=== PATIENT | male | born 1990 | race Caucasian/White ===

== ENCOUNTER 2023-01-01 13:13 | Emergency (ER) | payer OTHER, SELFPAY ==
[2023-01-01 13:15] VITALS: BP 160/86; PULSE 97; RESP 14; TEMP 36.4; O2SAT 99; BMI 26.4
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
== END 2023-01-01 15:33 | disposition home or self-care (01) ==
PROVIDERS: Emergency Provider Emergency Medicine; PCP Family Medicine; Visit Provider Emergency Medicine
DX: S16.1XXA Strain of muscle, fascia and tendon at neck level, initial encounter (principal); S20.211A Contusion of right front wall of thorax, initial encounter; V43.52XA Car driver injured in collision with other type car in traffic accident, initial encounter; Y92.410 Unspecified street and highway as the place of occurrence of the external cause; R06.00 Dyspnea, unspecified; M54.9 Dorsalgia, unspecified
CPT/HCPCS: 70450; 71101; 72125; 99282

== ENCOUNTER → 2023-01-10 | Outpatient (CLI) | payer OTHER, SELFPAY ==
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
== END | disposition home or self-care (01) ==
LOC: RAD 10:45
PROVIDERS: PCP Family Medicine; Referring Provider Family Medicine; Visit Provider Family Medicine
DX: Z04.1 Encounter for examination and observation following transport accident (principal)
CPT/HCPCS: 71100

== ENCOUNTER 2025-02-12 13:48 | Emergency (ER) | payer OTHER, SELFPAY ==
[2025-02-12 13:49] VITALS: PULSE 77; RESP 18; TEMP 36.4; O2SAT 99; BMI 27.7
--- NOTE | 2025-02-12 14:45 | RAD_ITS ---
PROCEDURE: KNEE 3 VIEWS 02/12/2025 REASON FOR EXAM: PAIN, FALL TECHNIQUE: Procedure Code: RADPAT Modality: DX Procedure: KNEE 3 VIEWS FINDINGS: Acute fracture of the patella. no dislocations. No significant degenerative changes. No large joint effusion. Mild soft tissue edema. no radiographic foreign body. RAD/Knee 3 Views IMPRESSION: Acute fracture of the patella. Mild soft tissue edema. Reading Location: [id number]
--- NOTE | 2025-02-12 15:06 | ED.VIS.LOWEX ---
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 Patient states he was working when he slipped on some mud and tripped over a tree root. States he is slightly twisted his left knee. States he was seen at outlying facility and they recommended him coming to the ED to rule out a fracture. Patient denies any numbness or tingling. He denies any injury elsewhere. Review of systems: See HPI Medications: As listed on the chart Allergies: As listed on the chart PFSH: Per chart Vital signs: As listed on the chart. Reviewed. Physical exam: Gen: A&O x3, NAD Head: Normocephalic, atraumatic Eyes: No sclera icterus, conjunctiva clear ENT: Moist mucous membranes Neck: Trachea midline, full range of motion CV: Regular rate Resp: Nonlabored respiration Musc: Full ROM of all the extremities including the left lower extremity/knee, patient mildly tender to palpation over the lateral aspect of the knee and patella, mild swelling, no ecchymosis or crepitus, full flexion and extension, no knee instability, no meniscal tenderness, no clicking or popping, DP/PT pulse +2, good capillary refill, sensation intact Skin: Warm, dry Psych: Cooperative, appropriate mood and affect [facility] Medical History History of concussion Home Medications ?Medication ?Instructions ?Recorded ?Last Taken ?Type NK 02/12/25 Unknown History Allergy/AdvReac Type Severity Reaction Status Date / Time amoxicillin Allergy Hives Verified 02/12/25 13:50 bacitracin (From Neosporin Allergy Hives Verified 02/12/25 13:50 ([id number])) neomycin (From Neosporin Allergy Hives Verified 02/12/25 13:50 ([id number])) Penicillins Allergy Hives Verified 02/12/25 13:50 polymyxin B (From Neosporin Allergy Hives Verified 02/12/25 13:50 ([id number])) Social History Smoking Status: Never smoker EXAM Physical Exam Const Vital Signs: 02/12/25 13:49 Temperature 97.6 F L Temperature Source Temporal Pulse Rate 77 Respiratory Rate 18 Pulse Ox 99 Oxygen Delivery Method Room Air MDM MDM MDM Narrative Medical decision making narrative: 34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 Patient states he was working when he slipped on some mud and tripped over a tree root. States he is slightly twisted his left knee. States he was seen at outlying facility and they recommended him coming to the ED to rule out a fracture. Patient denies any numbness or tingling. On presentation, patient no acute distress. See physical exam findings. Differential diagnosis includes but is not limited to sprain, contusion, fracture. X-ray of the knee obtained. X-ray of the knee was personally viewed interpreted by me, ED physician. Patient has a horizontal fracture of the patella. Radiology in agreement. Given this is a horizontal fracture, patient will require knee immobilizer and crutches. I did reach out to Dr. Salcedo with orthopedics for weightbearing status. Agrees with knee immobilizer and crutches. Patient weightbearing as tolerated. Call to make an appointment tomorrow to be seen in the office either Tuesday or Tuesday. Patient niki understand the plan. Patient able to discharge home. He was offered pain medicine but declined. Impression: 1. Closed left patellar fracture 2. Injury at work Radiography Diagnostic Testing: Clinical Impression(s) from Imaging Studies Knee X-Ray 02/12/25 14:45 IMPRESSION: Acute fracture of the patella. Mild soft tissue edema. Reading Location: [facility] Discharge Plan Triage Chief Complaint: Lower Extremity Injury ED Provider: Seb Armstrong Dx/Rx/DC Orders Prescriptions: No Action NK Primary Care Provider: Stan Bone Referrals: Stan Bone MD [Primary Care Provider, Family Practice] Print Language: Botswan[place]
[2025-02-12 16:11] VITALS: BP 116/74; PULSE 70; RESP 14; TEMP 36.6; O2SAT 100
== END 2025-02-12 16:12 | disposition home or self-care (01) ==
PROVIDERS: Emergency Provider Surgery; PCP Family Medicine; Visit Provider Surgery
DX: S82.092A Other fracture of left patella, initial encounter for closed fracture (principal); W18.49XA Other slipping, tripping and stumbling without falling, initial encounter; Y99.0 Civilian activity done for income or pay
CPT/HCPCS: 73562; 99284